=== PATIENT | female | born 1980 | race Caucasian/White ===

== ENCOUNTER 2016-03-29 07:48 | Inpatient (IN) | payer OTHER ==
[~2016-03-29] VITALS: Ht 172.7 cm; Wt 99.1 kg
[~2016-03-29 07:48] MED LIST: BIRTH CONTROL PO; COLACE 100100 MG/CAP PO; FISH OIL1000 MG PO; MULTIPLE VITAMI1 CAP PO; NORCO 325 MG-51 TAB PO; PRENATAL VITAMI1 TA5 PO
[2016-03-31] VITALS (37 sets, daily range): BP systolic 105–145; BP diastolic 55–89; PULSE 71–98; TEMP 97.8–98.5
[2016-03-31 07:33] LABS: BASO % 0.4 % (0.0-2.0); EOS # 0.1 (0.0-0.7); EOS % 1.1 % (0-4.0); GRAN # 7.5 (1.4-6.5); GRAN % 75.2 % (42.2-75.2); HEMOGLOBIN 13.2 g/dl (12.5-16.0); LYMPH # 1.4 (1.2-3.4); LYMPH % 13.7 % (20.0-51.0); MEAN CELL VOLUME 90 fl (80.0-100.0); MEAN CORPUSCULAR HEMOGLOBIN 33 pg (27.0-31.0); MEAN CORPUSCULAR HGB CONC 36 g/dl (33.0-37.0); MEAN PLATELET VOLUME 10.3 fl (7.4-10.4); MONO # 0.9 (0.1-0.6); MONO % 8.6 % (1.7-9.3); PLATELET COUNT 135 K/mm3 (130-400); RED BLOOD COUNT 4.04 M/mm3 (4.10-5.30); REDCELL DISTRIBUTION WIDTH-CV 13.6 % (11.5-14.5)
[2016-03-31] MEDS ORDERED: COLACE 100100 MG/CAP PO (07:33)
[2016-03-31 07:36] LABS: HEMATOCRIT 36.4 % (37.0-47.0)
[2016-04-01 03:10] VITALS: BP 118/61; PULSE 77; TEMP 97.8
[2016-04-01 07:06] VITALS: BP 131/86; PULSE 80; TEMP 97.6
[2016-04-01 15:00] VITALS: BP 120/70; PULSE 72; TEMP 97.6
[2016-04-01 17:00] VITALS: BP 121/76; PULSE 76; TEMP 97.9
== END 2016-04-01 17:30 | disposition home health service (06) | DRG 775 ==
LOC: EDSTATUS 07:48 → LDRO 09:35 → LDR 03-31 06:52 → OB 03-31 18:06
PROVIDERS: Obstetrics & Gynecology
PROC: 10E0XZZ Delivery of Products of Conception, External Approach (ICD-10-PCS; principal; 2016-03-31)
PROC: 0HQ9XZZ Repair Perineum Skin, External Approach (ICD-10-PCS; 2016-03-31)
PROC: 3E033VJ Introduction of Other Hormone into Peripheral Vein, Percutaneous Approach (ICD-10-PCS; 2016-03-31)
DX: O48.0 Post-term pregnancy (principal); O36.0130 Maternal care for anti-D [Rh] antibodies, third trimester, not applicable or unspecified; O77.0 Labor and delivery complicated by meconium in amniotic fluid; O70.0 First degree perineal laceration during delivery; O69.81X0 Labor and delivery complicated by cord around neck, without compression, not applicable or unspecified; O76 Abnormality in fetal heart rate and rhythm complicating labor and delivery; Z3A.40 40 weeks gestation of pregnancy; Z37.0 Single live birth
CPT/HCPCS: J2590; J2790; J2795; J7120

== ENCOUNTER → 2017-10-19 | Outpatient (CLI) | payer OTHER | LOC: MC.RAD 12:44 | DX: N64.4 Mastodynia (principal); N63.10 Unspecified lump in the right breast, unspecified quadrant ==